=== PATIENT | male | born 1970 | race Caucasian/White ===

== ENCOUNTER 2021-02-27 22:07 | Emergency (ER) | payer OTHER ==
--- OUTSIDE RECORDS SUMMARY | 2021-02-27 22:11 | XMS REPORT | Continuity of Care Document ---
:1970 Author Organization [facility] t Address [address] [place] [address] Care Team Providers Name Role Phone Singer CANNON Attending Clinician Kalpesh Summers DO Attending Clinician Aline REGAN Attending Clinician Problems This patient has no known problems. Allergies, Adverse Reactions, Alerts This patient has no known allergies or adverse reactions. Medications This patient has no known medications. Procedures This patient has no known procedures. Encounters Start End Encounter Admission Attending Care Care Encounter Source Date/Time Date/Time Type Type Clinicians Facility Department ID 2020-10-22 2020-10-[address] [facility] [id number] 21:30:00 23:08:00 Luke Sainz [id number] [place] [id number] [place] [id number] 2020-09-18 2020-09-18 Patient JUSTIN Summers [id number] 00:00:00 00:00:00 Outreach Maen CRAMER [id number] Kalpesh [facility] [id number] JACOB [id number] 2020-08-02 2020-08-02 Office JUSTIN Mireles [id number] 10:35:44 11:40:49 Visit David Sainz [id number] [place] [id number] Delfina [id number] [facility] [address] Results This patient has no known results.
[2021-02-28 00:10] LABS: Urine Blood 3+ (Negative); Urine Glucose Negative (Negative); Urine Protein 1+ (Negative); Urine Specific Gravity 1.025 (1.005-1.030)
[2021-02-28 03:01] LABS: Absolute Lymphocytes (CBC) 1.7 K/uL (0.7-4.9); Basophils % 0.6 % (0-1.3); Hematocrit 44.1 % (39.6-49.0); Lymphocytes % 17.6 % (15.3-44.8); MPV 8.1 fL (7.6-11.3); RBC Red Blood Cell Count 5.25 M/uL (4.33-5.43)
[2021-02-28 03:21] LABS: Albumin 4.2 g/dL (3.4-5.0); Bilirubin Direct 0.1 mg/dL (0-0.2); Bilirubin Total 0.5 mg/dL (0.2-1.0); Protein, Total 8.1 g/dL (6.4-8.2)
--- NOTE | 2021-02-28 04:03 | ER ---
Nurse's Notes [facility] Name: Tomas Hedrick Age: 51 yrs Sex: Male : 1970 Arrival Date: 02/27/2021 Time: 22:12 Bed 12 Private MD: Jana Frazier H Diagnosis: Low back pain-resolved from recently past kidney stone Presentation: 02/27 23:41 Chief complaint: Patient states: Right back, right flank, right lower abdomen starting kg at 15:00. Pt stated he has drank a lot of water this evening and pain has subsided quit a bit. Coronavirus screen: Client denies travel out of the [place] in the last 14 days. At this time, unable to obtain information related to travel outside the [place] At this time, the client does not indicate any symptoms associated with coronavirus-19. Ebola Screen: Patient negative for fever greater than or equal to 101.5 degrees Fahrenheit, and additional compatible Ebola Virus Disease symptoms Patient denies exposure to infectious person. Patient denies travel to an Ebola-affected area in the 21 days before illness onset. Initial Sepsis Screen: Does the patient meet any 2 criteria? No. Patient's initial sepsis screen is negative. Does the patient have a suspected source of infection? No. Patient's initial sepsis screen is negative. Risk Assessment: Do you want to hurt yourself or someone else? Patient reports no desire to harm self or others. Onset of symptoms was February 27, 2021 at 15:00. 23:41 Method Of Arrival: Ambulatory kg 23:41 Acuity: NOHEMI 3 kg Triage Assessment: 23:43 General: Appears in no apparent distress. Behavior is calm, cooperative, appropriate kg for age. Pain: Complains of pain in Right lower back, Right flank, Right lower abdomen. GI: Reports lower abdominal pain, gaseousness. : Reports pain in right in suprapubic area flank(s), lower quadrant(s). Historical: - Allergies: 23:51 Penile implants for Peyronies disease; kg - Home Meds: 23:43 phentermine 37.5 mg oral tab 1 tab once daily [Active]; venlafaxine 150 mg oral cp24 1 kg cap once daily [Active]; montelukast 10 mg oral tab 1 tab once daily [Active]; losartan 25 mg oral tab 1 tab once daily [Active]; topiramate 50 mg oral tab 1 tab 2 times per day [Active]; - PMHx: 23:43 Hypertensive disorder; kg - PSHx: 23:43 Carpal tunnel; kg - Immunization history:: Adult Immunizations not up to date, Client reports having NOT received the Covid vaccine. - Social history:: Smoking status: Patient denies any tobacco usage or history of. - Code Status:: Full code. Screenin/26 02:25 Abuse screen: Denies threats or abuse. Denies injuries from another. Nutritional wg screening: No deficits noted. Tuberculosis screening: No symptoms or risk factors identified. Fall Risk None identified. Assessment: 02:23 Reassessment: Patient appears in no apparent distress at this time. Patient denies pain wg at this time. Patient states symptoms have improved. General: Appears in no apparent distress. comfortable. Pain: Denies pain. Neuro: No deficits noted. Cardiovascular: No deficits noted. Respiratory: No deficits noted. GI: No deficits noted. Bowel sounds present X 4 quads. : No deficits noted. EENT: No deficits noted. Derm: No deficits noted. Musculoskeletal: No deficits noted. 04:11 GI: sh9 Vital Signs: 02/27 23:41 BP 150 / 95; Pulse 88; Resp 20; Temp 98.3(O); Pulse Ox 100% on R/A; Weight 112.49 kg kg (R); Height 6 ft. 4 in. (193.04 cm); Pain 4/10; 02/28 02:27 BP 132 / 88; Pulse 76; Resp 18; Temp 98.1; Pulse Ox 100% on R/A; Pain 0/10; wg 04:10 BP 149 / 90; Pulse 78; Resp 18; Pulse Ox 100% on R/A; Pain 1/10; sh9 02/27 23:41 Body Mass Index 30.19 (112.49 kg, 193.04 cm) kg Lisette Coma Score: 02:23 Eye Response: spontaneous(4). Verbal Response: oriented(5). Motor Response: obeys wg commands(6). Total: 15. ED Course: 02/27 22:12 Patient arrived in ED. mr 22:12 Jana Frazier DO is Private Physician. mr 23:43 Triage completed. kg 02/28 01:59 Tyler Benton PA is PHCP. cp 01:59 Jerome Carpenter MD is Attending Physician. cp 02:21 Cecilia Forbes, FUNMILAYO is Primary Nurse. sh9 02:21 Basic Metabolic Panel Sent. sh9 02:21 CBC with Diff Sent. sh9 02:21 Hepatic Function Sent. sh9 02:21 Lipase Sent. sh9 02:21 Urine Microscopic Only Sent. sh9 02:21 Initial lab(s) drawn, by me, sent to lab. Inserted saline lock: 20 gauge in right tt3 antecubital area, using aseptic technique. Blood collected. 02:25 No apparent distress. wg 02:25 No provider procedures requiring assistance completed. wg 02:25 Patient has correct armband on for positive identification. Side rails up X2. wg 02:46 CT Stone Protocol In Process Unspecified. EDMS 04:11 IV discontinued, intact, bleeding controlled, No redness/swelling at site. sh9 04:11 Arm band placed on. sh9 Administered Medications: No medications were administered Outcome: 04:03 Discharge ordered by MD. cp 04:11 Discharged to home ambulatory. sh9 04:11 Condition: stable 04:11 Discharge instructions given to patient, Instructed on discharge instructions, Demonstrated understanding of instructions, follow-up care. 04:11 Patient left the ED. sh9 Signatures: Dispatcher [employer] ED DelgadoNoemy mr Tyler Benton PA PA cp Trim, Tyler tt3 Liza Avalos RN RN kg Cecilia Forbes RN RN 9 Issa [place] Corrections: (The following items were deleted from the chart) 02/27 23:49 23:43 Allergies: phentermine; kg kg 23:49 23:43 PSHx: Penile implant; kg kg 23:51 23:43 Allergies: No Known Allergies; kg kg 23:51 23:43 PSHx: Penile implant to correct poronies; kg kg
--- NOTE | 2021-02-28 04:04 | EDPHYS ---
Physician Documentation [facility] Name: Tomas Hedrick Age: 51 yrs Sex: Male : 1970 Arrival Date: 02/27/2021 Time: 22:12 Bed 12 Private MD: Jana Frazier H ED Physician Jerome Carpenter HPI: 02/28 02:15 This 51 yrs old Male presents to ER via Ambulatory with complaints of cp Abdominal Pain, Back Pain. 02:15 The patient complains of pain in the right flank. cp 02:15 The pain radiates to the right side of abdomen and right groin. Onset: The cp symptoms/episode began/occurred yesterday, about 1500. Associated signs and symptoms: Pertinent negatives: diarrhea, fever, pain radiating to the lower extremities, vomiting. Severity of pain: in the emergency department the pain has improved markedly. Historical: - Allergies: 02/27 23:51 Penile implants for Peyronies disease; kg - Home Meds: 23:43 phentermine 37.5 mg oral tab 1 tab once daily [Active]; venlafaxine 150 mg oral cp24 1 kg cap once daily [Active]; montelukast 10 mg oral tab 1 tab once daily [Active]; losartan 25 mg oral tab 1 tab once daily [Active]; topiramate 50 mg oral tab 1 tab 2 times per day [Active]; - PMHx: 23:43 Hypertensive disorder; kg - PSHx: 23:43 Carpal tunnel; kg - Immunization history:: Adult Immunizations not up to date, Client reports having NOT received the Covid vaccine. - Social history:: Smoking status: Patient denies any tobacco usage or history of. - Code Status:: Full code. ROS: 02/28 02:20 Eyes: Negative for injury, pain, redness, and discharge. cp Constitutional: Negative for body aches, chills, fever, poor PO intake. ENT: Negative for ear pain, sore throat, difficulty swallowing, difficulty handling secretions. Respiratory: Negative for cough, shortness of breath, wheezing. Abdomen/GI: Positive for abdominal pain, Negative for vomiting, diarrhea, constipation. Back: Positive for flank pain, on the right. Neuro: Negative for altered mental status, headache, weakness. All other systems are negative. Exam: 02:25 Constitutional: The patient appears in no acute distress, alert, awake, comfortable, cp non-toxic, well developed, well nourished. 02:25 Head/Face: Normocephalic, atraumatic. cp 02:25 Eyes: Periorbital structures: appear normal, Conjunctiva: normal, no exudate, no injection, Sclera: no appreciated abnormality, Lids and lashes: appear normal, bilaterally. 02:25 ENT: External ear(s): are unremarkable, Nose: is normal, Mouth: Lips: moist, Oral mucosa: moist, Posterior pharynx: Airway: no evidence of obstruction, patent. 02:25 Chest/axilla: Inspection: normal, Palpation: is normal, no crepitus, no tenderness. 02:25 Cardiovascular: Rate: normal, Rhythm: regular. 02:25 Respiratory: the patient does not display signs of respiratory distress, Respirations: normal, no use of accessory muscles, labored breathing, is not present, Breath sounds: are clear throughout, no decreased breath sounds, no stridor, no wheezing. 02:25 Abdomen/GI: Inspection: abdomen appears normal, Bowel sounds: active, all quadrants, Palpation: soft, in all quadrants, nontender, in all quadrants, rebound tenderness, is not appreciated, involuntary guarding, is not appreciated. 02:25 Back: CVA tenderness, is absent. 02:25 Skin: no rash present. Vital Signs: 02/27 23:41 BP 150 / 95; Pulse 88; Resp 20; Temp 98.3(O); Pulse Ox 100% on R/A; Weight 112.49 kg kg (R); Height 6 ft. 4 in. (193.04 cm); Pain 4/10; 02/28 02:27 BP 132 / 88; Pulse 76; Resp 18; Temp 98.1; Pulse Ox 100% on R/A; Pain 0/10; wg 04:10 BP 149 / 90; Pulse 78; Resp 18; Pulse Ox 100% on R/A; Pain 1/10; sh9 02/27 23:41 Body Mass Index 30.19 (112.49 kg, 193.04 cm) kg Lisette Coma Score: 02:23 Eye Response: spontaneous(4). Verbal Response: oriented(5). Motor Response: obeys wg commands(6). Total: 15. MDM: 02:01 Patient medically screened. cp 02:20 Differential diagnosis: nephrolithiasis, pyelonephritis, UTI, pancreatitis, cp appendicitis. 04:00 Data reviewed: vital signs, nurses notes, lab test result(s), radiologic studies, CT cp scan. Counseling: I had a detailed discussion with the patient and/or guardian regarding: the historical points, exam findings, and any diagnostic results supporting the discharge/admit diagnosis, lab results, radiology results, to return to the emergency department if symptoms worsen or persist or if there are any questions or concerns that arise at home. ED course: Patient reports pain resolved while waiting in ED and denies any pain, urinary symptoms. Will discharge to home for continued monitoring. 02/28 00:10 Order name: Urine Dipstick-Ancillary; Complete Time: 02:20 EDMS 02/28 02:20 Interpretation: Normal except: UBLD 3+; UPROT 1+. cp 02/28 02:02 Order name: Basic Metabolic Panel; Complete Time: 03:29 tt3 02/28 03:29 Interpretation: Normal except: CL 111; GLUC 125; GFR 71. cp 02/28 02:02 Order name: CBC with Diff; Complete Time: 03:29 tt3 02/28 03:30 Interpretation: Reviewed. cp 02/28 02:02 Order name: Hepatic Function; Complete Time: 03:29 tt3 02/28 02:02 Order name: Lipase; Complete Time: 03:29 tt3 02/28 02:02 Order name: CT Stone Protocol tt3 02/28 02:02 Order name: IV Saline Lock; Complete Time: 02:21 tt3 02/28 02:02 Order name: NPO; Complete Time: 02:14 tt3 02/28 02:02 Order name: Urine Dipstick-Ancillary (obtain specimen); Complete Time: 02:21 tt3 Administered Medications: No medications were administered Disposition: 04:18 Co-signature as Attending Physician, Jerome Carpenter MD. pkl Disposition Summary: 02/28/21 04:03 Discharge Ordered Location: Home cp Problem: new cp Symptoms: are resolved cp Condition: Stable cp Diagnosis - Low back pain - resolved from recently past kidney stone cp Followup: cp - With: Private Physician - When: As needed - Reason: Worsening of condition Discharge Instructions: - Discharge Summary Sheet cp - Kidney Stones cp - Dietary Guidelines to Help Prevent Kidney Stones cp Forms: - Medication Reconciliation Form cp - Thank You Letter cp - Antibiotic Education cp - Prescription Opioid Use cp Signatures: Dispatcher [employer] Jerome Shannon MD MD pkl Tyler Benton PA PA cp Trim, Tyler tt3 Liza Avalos RN RN kg Issa [place] Corrections: (The following items were deleted from the chart) 02/27 23:49 23:43 Allergies: phentermine; kg kg 23:49 23:43 PSHx: Penile implant; kg kg 23:51 23:43 Allergies: No Known Allergies; kg kg 23:51 23:43 PSHx: Penile implant to correct poronies; kg kg
[2021-02-28 04:18] VITALS: O2SAT 100
[2021-02-28 04:19] VITALS: TEMP 98.1
[2021-02-28 04:21] VITALS: BP 149/90
--- NOTE | 2021-02-28 11:34 | RAD REPORT ---
EXAM DESCRIPTION: CT Abdomen and Pelvis Without Intravenous Contrast CLINICAL HISTORY: The patient is 51 years old and is Male; Abd pain;Flank pain;RLQ pain TECHNIQUE: Axial computed tomography images of the abdomen and pelvis without intravenous contrast. Sagittal and coronal reformatted images were created and reviewed. This CT exam was performed usi ng one or more of the following dose reduction techniques: automated exposure control, adjustment o f the mA and/or kV according to patient size, and/or use of iterative reconstruction technique. COMPARISON: No relevant prior studies available. FINDINGS: Lung bases: Unremarkable. No mass. No consolidation. ABDOMEN: Liver: Unremarkable. Gallbladder and bile ducts: Unremarkable. No calcified stones. No ductal dilation. Pancreas: Unremarkable. No ductal dilation. Spleen: Unremarkable. No splenomegaly. Adrenals: Unremarkable. No mass. Kidneys and ureters: Moderate right perinephric/periureteral stranding. Mild right hydroureteron ephrosis. No evidence of obstructing stone. Mild left perinephric stranding. Stomach and bowel: There are a few colonic diverticula. No obstruction. No mucosal thickening. PELVIS: Appendix: Appendix is normal. Bladder: Unremarkable. No stones. Reproductive: Unremarkable as visualized. ABDOMEN and PELVIS: Intraperitoneal space: Unremarkable. No free air. No significant fluid collection. Bones/joints: No acute fracture. No dislocation. Soft tissues: Unremarkable. Vasculature: Unremarkable. No abdominal aortic aneurysm. Lymph nodes: Unremarkable. No enlarged lymph nodes. Tubes, lines and devices: Penile implant device. IMPRESSION: 1. Moderate right perinephric/periureteral stranding. Mild right hydroureteronephrosis . No evidence of obstructing stone. Findings may represent recent stone passage. Underlying infecti on is not excluded. 2. Appendix is normal. Electronically signed by: Jamie Syed MD 02/28/2021 3:20 AM CDT Due to temporary technical issues with the PACS/Fluency reporting system, reports are being signed by the in house radiologist without review as a courtesy to ensure prompt reporting. The interpreting r adiologist is fully responsible for the content of the report.
== END 2021-02-28 04:11 | disposition home or self-care (01) ==
LOC: ER 22:07
DX: M54.5 Low back pain (principal); Z87.442 Personal history of urinary calculi; I10 Essential (primary) hypertension
CPT/HCPCS: 36415; 74176; 76377; 80048; 80076; 81003; 83690; 85025; 99283